=== PATIENT | male | born 1945 | race Caucasian/White ===

== ENCOUNTER 2019-03-06 10:13 | Inpatient (IN) ==
[2019-03-06 12:03] LABS: BASO# 0.01 X1000 (0.0-0.2); BASO% 0.1 % (0.0-0.8); HEMATOCRIT 42.2 % (42.0-52.0); HEMOGLOBIN 14.2 g/dL (14.0-18.0); IMM GRAN# 0.03 X1000 (0.0-0.04); IMM GRAN% 0.3 % (0.0-0.5); LYMPH# 0.58 X1000 (1.2-3.4); MCH 30.9 PG (27-31); MCHC 33.6 g/dL (33-37); MCV 91.9 FL (81-99); MONO% 9.3 % (1.7-9.3); MPV 9.6 FL (7.4-10.4); NEUT# 8.12 X1000 (1.4-6.5); NEUT% 84.3 % (42.2-75.2); PLT 246 X1000 (130-400); RBC 4.59 XMIL (4.7-6.1); RDW 14.5 % (11.5-14.5); WBC 9.64 X1000 (4.8-10.8)
[2019-03-06 12:29] LABS: ALB/GLOB RATIO 1.5; ALBUMIN 4.3 g/dL (3.5-5.0); CALCIUM 9.6 mg/dL (8.8-10.2); CREATININE 2.1 mg/dL (0.7-1.2); POTASSIUM 3.3 mmol/L (3.5-5.1); TOTAL BILIRUBIN 0.65 mg/dL (0.20-1.00); TOTAL PROTEIN 7.2 g/dL (6.3-8.3)
[2019-03-06 12:52] LABS: URINE SOURCE CLEAN CATCH
[2019-03-06 12:58] LABS: BILIRUBIN URINE NEGATIVE (NEGATIVE); BLOOD URINE MODERATE (NEGATIVE); COLOR YELLOW; GLUCOSE URINE NEGATIVE (NEGATIVE); KETONE URINE 20 mg/dL (NEGATIVE); LEUKOCYTES URINE NEGATIVE (NEGATIVE); NITRITE URINE NEGATIVE (NEGATIVE); PH URINE 6.5; PROTEIN URINE TRACE mg/dL (NEGATIVE); SP GRAVITY URINE 1.025; TURBIDITY URINE CLEAR (CLEAR); UR EPITHELIAL CELLS <10 /HPF (<10); URINE BACTERIA NEGATIVE /HPF; URINE RBC TNTC /HPF (<10); URINE WBC <10 /HPF (<10); UROBILINOGEN URINE NORMAL (NORMAL)
[2019-03-07 07:47] LABS: BASO# 0.01 X1000 (0.0-0.2); BASO% 0.2 % (0.0-0.8); EOS# 0.01 X1000 (0.0-0.7); EOS% 0.2 % (0.0-10.0); HEMATOCRIT 35.1 % (42.0-52.0); HEMOGLOBIN 11.6 g/dL (14.0-18.0); LYMPH# 0.76 X1000 (1.2-3.4); LYMPH% 11.8 % (20.5-51.1); MCH 31.6 PG (27-31); MCV 95.6 FL (81-99); MONO# 0.68 X1000 (0.11-0.59); MONO% 10.5 % (1.7-9.3); MPV 9.7 FL (7.4-10.4); NEUT# 4.99 X1000 (1.4-6.5); NEUT% 77.3 % (42.2-75.2); PLT 178 X1000 (130-400); RBC 3.67 XMIL (4.7-6.1); RDW 14.9 % (11.5-14.5); WBC 6.45 X1000 (4.8-10.8)
[2019-03-07 08:09] LABS: CALCIUM 8.4 mg/dL (8.8-10.2); CREATININE 1.7 mg/dL (0.7-1.2); POTASSIUM 3.1 mmol/L (3.5-5.1)
[2019-03-08 07:53] LABS: EOS# 0.02 X1000 (0.0-0.7); EOS% 0.3 % (0.0-10.0); HEMATOCRIT 36.9 % (42.0-52.0); IMM GRAN# 0.02 X1000 (0.0-0.04); IMM GRAN% 0.3 % (0.0-0.5); LYMPH# 0.84 X1000 (1.2-3.4); LYMPH% 12.1 % (20.5-51.1); MCH 30.8 PG (27-31); MCHC 32.5 g/dL (33-37); MCV 94.6 FL (81-99); MONO# 0.63 X1000 (0.11-0.59); MONO% 9.1 % (1.7-9.3); NEUT# 5.45 X1000 (1.4-6.5); NEUT% 78.2 % (42.2-75.2); PLT 188 X1000 (130-400); RDW 14.6 % (11.5-14.5); WBC 6.96 X1000 (4.8-10.8)
[2019-03-08 08:01] LABS: CALCIUM 8.2 mg/dL (8.8-10.2); CREATININE 1.6 mg/dL (0.7-1.2); POTASSIUM 2.9 mmol/L (3.5-5.1)
[2019-03-09 08:56] LABS: BASO# 0.01 X1000 (0.0-0.2); BASO% 0.2 % (0.0-0.8); EOS# 0.03 X1000 (0.0-0.7); EOS% 0.5 % (0.0-10.0); HEMATOCRIT 37.2 % (42.0-52.0); HEMOGLOBIN 12.2 g/dL (14.0-18.0); IMM GRAN# 0.03 X1000 (0.0-0.04); IMM GRAN% 0.5 % (0.0-0.5); LYMPH# 0.45 X1000 (1.2-3.4); LYMPH% 7.6 % (20.5-51.1); MCH 30.8 PG (27-31); MCHC 32.8 g/dL (33-37); MCV 93.9 FL (81-99); MONO# 0.53 X1000 (0.11-0.59); MONO% 8.9 % (1.7-9.3); MPV 10.6 FL (7.4-10.4); NEUT# 4.89 X1000 (1.4-6.5); NEUT% 82.3 % (42.2-75.2); PLT 179 X1000 (130-400); RBC 3.96 XMIL (4.7-6.1); RDW 14.3 % (11.5-14.5); WBC 5.94 X1000 (4.8-10.8)
[2019-03-09 09:11] LABS: ALB/GLOB RATIO 1.5; ALBUMIN 3.5 g/dL (3.5-5.0); CALCIUM 8.2 mg/dL (8.8-10.2); CREATININE 1.4 mg/dL (0.7-1.2); POTASSIUM 3.4 mmol/L (3.5-5.1); TOTAL BILIRUBIN 0.69 mg/dL (0.20-1.00); TOTAL PROTEIN 5.9 g/dL (6.3-8.3)
[2019-03-10 07:27] LABS: HEMATOCRIT 37.6 % (42.0-52.0); HEMOGLOBIN 12.6 g/dL (14.0-18.0); IMM GRAN# 0.03 X1000 (0.0-0.04); IMM GRAN% 0.5 % (0.0-0.5); LYMPH# 0.47 X1000 (1.2-3.4); LYMPH% 7.6 % (20.5-51.1); MCHC 33.5 g/dL (33-37); MCV 92.4 FL (81-99); MONO# 0.54 X1000 (0.11-0.59); MONO% 8.7 % (1.7-9.3); NEUT# 5.16 X1000 (1.4-6.5); NEUT% 83.2 % (42.2-75.2); PLT 204 X1000 (130-400); RBC 4.07 XMIL (4.7-6.1); RDW 14.2 % (11.5-14.5)
[2019-03-10 07:59] LABS: ALB/GLOB RATIO 1.3; ALBUMIN 3.3 g/dL (3.5-5.0); CALCIUM 8.5 mg/dL (8.8-10.2); CREATININE 1.2 mg/dL (0.7-1.2); POTASSIUM 3.8 mmol/L (3.5-5.1); TOTAL BILIRUBIN 0.63 mg/dL (0.20-1.00); TOTAL PROTEIN 5.9 g/dL (6.3-8.3)
[2019-03-11 05:13] LABS: EOS% 1.5 % (0.0-10.0); HEMATOCRIT 37.8 % (42.0-52.0); HEMOGLOBIN 12.6 g/dL (14.0-18.0); IMM GRAN# 0.04 X1000 (0.0-0.04); IMM GRAN% 0.6 % (0.0-0.5); LYMPH# 0.66 X1000 (1.2-3.4); LYMPH% 9.9 % (20.5-51.1); MCHC 33.3 g/dL (33-37); MCV 92.9 FL (81-99); MONO# 0.69 X1000 (0.11-0.59); MONO% 10.4 % (1.7-9.3); MPV 10.2 FL (7.4-10.4); NEUT# 5.17 X1000 (1.4-6.5); NEUT% 77.6 % (42.2-75.2); PLT 197 X1000 (130-400); RBC 4.07 XMIL (4.7-6.1); RDW 14.4 % (11.5-14.5); WBC 6.66 X1000 (4.8-10.8)
[2019-03-11 05:45] LABS: AGAP 17; ALB/GLOB RATIO 1.9; ALBUMIN 3.4 g/dL (3.5-5.0); ALKALINE PHOSPHATASE 40 U/L (32-122); BUN 29 mg/dL (8-22); CALCIUM 8.5 mg/dL (8.8-10.2); CHLORIDE 111 mmol/L (98-107); COSMO 298; CREATININE 1.1 mg/dL (0.7-1.2); ESTIMATED GFR > 60; GLUCOSE 90 mg/dL (70-104); GOT 14 U/L (10-34); GPT 13 U/L (10-44); POTASSIUM 3.6 mmol/L (3.5-5.1); SODIUM 147 mmol/L (136-145); TCO2 19 mmol/L (25-35); TOTAL BILIRUBIN 0.55 mg/dL (0.20-1.00); TOTAL PROTEIN 5.2 g/dL (6.3-8.3)
[2019-03-13 06:11] LABS: BASO# 0.01 X1000 (0.0-0.2); BASO% 0.2 % (0.0-0.8); EOS% 4.7 % (0.0-10.0); HEMATOCRIT 34.4 % (42.0-52.0); HEMOGLOBIN 11.5 g/dL (14.0-18.0); IMM GRAN# 0.04 X1000 (0.0-0.04); IMM GRAN% 0.9 % (0.0-0.5); LYMPH# 1.02 X1000 (1.2-3.4); MCH 30.4 PG (27-31); MCHC 33.4 g/dL (33-37); MONO# 0.56 X1000 (0.11-0.59); MONO% 13.2 % (1.7-9.3); MPV 9.8 FL (7.4-10.4); NEUT# 2.42 X1000 (1.4-6.5); PLT 200 X1000 (130-400); RBC 3.78 XMIL (4.7-6.1); RDW 13.9 % (11.5-14.5); WBC 4.25 X1000 (4.8-10.8)
[2019-03-13 07:19] LABS: ALB/GLOB RATIO 1.4; ALBUMIN 2.9 g/dL (3.5-5.0); CALCIUM 8.1 mg/dL (8.8-10.2); CREATININE 1.2 mg/dL (0.7-1.2); TOTAL BILIRUBIN 0.52 mg/dL (0.20-1.00)
[2019-03-13 07:36] VITALS: BP 141/86
== END 2019-03-13 12:31 | disposition home or self-care (01) | DRG 659 ==
LOC: ED 10:13 → 3N 16:44 → ICU 03-10 17:04 → 2N 03-11 15:18
PROVIDERS: ADMIT Internal Medicine; ATTEND Internal Medicine